=== PATIENT | male | born 1930 | race Caucasian/White ===

== ENCOUNTER 2017-04-11 08:06 | Inpatient (IN) ==
[2017-04-11 10:06] LABS: Basophils % 0.3 % (0.0-0.8); Eosinophils % 0.2 % (0.00-10.9); Hemoglobin 11.9 GM/DL (14.0-18.0); Immature Granulocytes % 0.5 %; Immature Granulocytes Absolute 0.05 #; Lymphocytes % 9.2 % (21.2-54.2); Mean Corpuscular HGB Conc 32.2 GM/DL (32-36); Mean Corpuscular Hemoglobin 30 PG (27-34); Mean Corpuscular Volume 93.7 FL (87-102); Mean Platelet Volume 11.9 FL (9.6-12.0); Monocytes # 0.4 10*3/uL (0.11-0.8); Monocytes % 4.1 % (1.7-12.7); Neutrophils # 8.9 10*3/uL (1.4-7.4); Neutrophils % 85.7 % (38.7-73.9); Platelet Count 239 T/CUMM (130-400); Red Blood Count 3.95 MC/CUMM (3.8-5.5); Red Cell Distribution Width 14.8 % (9.3-17.3); White Blood Count 10.4 T/CUMM (4-12)
[2017-04-11 10:14] LABS: PT Patient Result 10.2 SECS; Partial Thromboplastin Time 25.6 SECS (0-40)
[2017-04-11 10:34] LABS: Alanine Aminotransferase 17 U/L (16-61); Albumin 2.6 G/DL (3.4-5.0); Alkaline Phosphatase 129 U/L (45-117); Aspartate Amino Transferase 18 U/L (0-37); Blood Urea Nitrogen 25 MG/DL (7-18); Calcium 8.4 MG/DL (8.5-10.1); Glucose 71 MG/DL (74-106); Osmolality,Calculated 282.3 MOS/KG (273-304); Potassium 3.9 MMOL/L (3.5-5.1); Sodium 141 MMOL/L (136-145); Total Protein 6.7 G/DL (6.4-8.3); Troponin I Only < 0.015 NG/ML (0.00-0.045)
[2017-04-11] MEDS ORDERED: DEXTROSE 50% 25 GM/50 ML SYRINGE IV ONE ×6 (10:49→19:22)
[2017-04-11] MEDS ORDERED: HYDROmorphone 2 MG/1 ML VIAL ONE (10:49)
[2017-04-11] MEDS ORDERED: HYDROmorphone 2 MG/1 ML VIAL IV STA (10:52)
[2017-04-11] MEDS ORDERED: DEXTROSE 50% 25 GM/50 ML VIAL IV STA ×3 (10:53→15:04)
[2017-04-11 11:50] LABS: Apearance,Urine CLOUDY (Clear); Bacteria,Urine Occasional /HPF (Few); Bilirubin,Urine Negative (Negative); Blood, Urine Small mg/dL (Negative); Glucose,Urine (UA) 50 mg/dL (Negative); Ketones,Urine Negative (Negative); Mucus,Urine Occasional /LPF (Occasional); Nitrite,Urine Positive (Negative); Protein,Urine Negative; RBC,Urine 6 /HPF (0-4); Urine Color Yellow (Yellow); Urine Specific Gravity 1.012 (1.001-1.035); Urine Urobilinogen < 2.0 EU/DL (0.2-1.0); WBC,Urine 130 /HPF (0-6)
[2017-04-11] MEDS ORDERED: LEVOFLOXACIN INJ 750 MG in PREMIX 1 EACH IV STA (12:06)
[2017-04-11] MEDS ORDERED: LEVOFLOXACIN INJ 150 ML IV ONE (12:07)
[2017-04-11] MEDS ORDERED: DEXTROSE 5% 250 ML IV SCH (14:00)
[2017-04-11] MEDS ORDERED: ACETAMINOPHEN 325 MG TABLET PO PRN (14:59)
[2017-04-11] MEDS ORDERED: GLUCAGON 1 MG VIAL IM PRN (15:03)
[2017-04-11] MEDS ORDERED: ENOXAPARIN 40 MG/0.4 ML SYRINGE ONE (15:26)
[2017-04-11] MEDS ORDERED: DEXTROSE 10% 1,000 ML IV SCH (15:30)
[2017-04-11] MEDS: ENOXAPARIN 40 MG/0.4 ML SYRINGE SUBCUT SCH (15:31)
[2017-04-11] MEDS: DEXTROSE 50% 25 GM/50 ML VIAL IV PRN ×7 (16:13→23:39)
[2017-04-11] MEDS ORDERED: GLUCAGON 1 MG VIAL IM STA (18:33)
[2017-04-11] MEDS ORDERED: GLUCAGON 1 MG VIAL ONE (19:21)
[2017-04-11] MEDS: [UNRECOGNIZED DRUG - OTHER] IV SCH (20:53)
[2017-04-11] MEDS: MULTIVITAMIN IV SCH (20:53)
[2017-04-11] MEDS: TRACE ELEMENTS IV SCH (20:53)
[2017-04-11] MEDS ORDERED: CARVEDILOL 12.5 MG TABLET PO SCH (21:00)
[2017-04-11] MEDS: DEXTROSE 10% 1,000 ML IV SCH (22:25)
[2017-04-12] MEDS: DEXTROSE 50% 25 GM/50 ML VIAL IV PRN ×9 (00:37→13:54)
[2017-04-12] MEDS: FLUTICASONE 50 MCG NASAL SPRAY 16 GM BOTTLE BOTH NARES SCH (05:39)
[2017-04-12] MEDS: DEXTROSE 10% 1,000 ML IV SCH ×4 (05:56→21:20)
[2017-04-12 06:29] LABS: Basophils % 0.3 % (0.0-0.8); Eosinophils # 0.2 10*3/uL (0.0-0.87); Eosinophils % 1.4 % (0.00-10.9); Hematocrit 28.7 VOL% (42.0-52.0); Hemoglobin 9.3 GM/DL (14.0-18.0); Immature Granulocytes % 1.1 %; Immature Granulocytes Absolute 0.13 #; Lymphocytes # 1.1 10*3/uL (1.4-4.0); Lymphocytes % 9.7 % (21.2-54.2); Mean Corpuscular HGB Conc 32.4 GM/DL (32-36); Mean Corpuscular Hemoglobin 30 PG (27-34); Mean Corpuscular Volume 93.8 FL (87-102); Mean Platelet Volume 12.7 FL (9.6-12.0); Monocytes # 1.3 10*3/uL (0.11-0.8); Monocytes % 10.9 % (1.7-12.7); NRBC # 0.06 10*3/uL; Neutrophils % 76.6 % (38.7-73.9); Platelet Count 200 T/CUMM (130-400); Red Blood Count 3.06 MC/CUMM (3.8-5.5); Red Cell Distribution Width 14.7 % (9.3-17.3); White Blood Count 11.8 T/CUMM (4-12)
[2017-04-12 06:49] LABS: Albumin 1.8 G/DL (3.4-5.0); Bilirubin,Total 0.5 MG/DL (0.2-1.0); Calcium 7.5 MG/DL (8.5-10.1); Potassium 3.3 MMOL/L (3.5-5.1); Total Protein 4.8 G/DL (6.4-8.3)
[2017-04-12] MEDS ORDERED: ONDANSETRON 4 MG/2 ML VIAL IV PRN (07:29)
[2017-04-12] MEDS ORDERED: ONDANSETRON 4 MG/2 ML VIAL ONE (07:29)
[2017-04-12] MEDS ORDERED: CLOPIDOGREL 75 MG TABLET ONE (08:46)
[2017-04-12] MEDS ORDERED: ASPIRIN CHEW 81 MG TABLET PO ONE (08:46)
[2017-04-12] MEDS: ASPIRIN EC 81 MG TABLET PO SCH (08:54)
[2017-04-12] MEDS: CLOPIDOGREL 75 MG TABLET PO SCH (08:54)
[2017-04-12] MEDS: [UNRECOGNIZED DRUG - OTHER] IV SCH (11:56)
[2017-04-12] MEDS: TRACE ELEMENTS IV SCH (11:56)
[2017-04-12] MEDS: MULTIVITAMIN IV SCH (11:56)
[2017-04-12] MEDS ORDERED: LEVOFLOXACIN INJ 150 ML IV ONE (13:28)
[2017-04-12] MEDS: LEVOFLOXACIN INJ 750 MG in PREMIX 1 EACH IV SCH (13:52)
[2017-04-12] MEDS ORDERED: traZODone 50 MG TABLET PO PRN (16:11)
[2017-04-12] MEDS: CARVEDILOL 12.5 MG TABLET PO SCH ×2 (16:48→21:20)
[2017-04-12] MEDS: ATORVASTATIN 40 MG TABLET PO SCH (21:20)
[2017-04-12] MEDS: ENOXAPARIN 40 MG/0.4 ML SYRINGE SUBCUT SCH (21:20)
[2017-04-13] MEDS: DEXTROSE 10% 500 ML IV SCH ×11 (02:48→23:40)
[2017-04-13] MEDS: DEXTROSE 10% 1,000 ML IV SCH (07:02)
[2017-04-13] MEDS: ALLOPURINOL 100 MG TABLET PO SCH (08:35)
[2017-04-13] MEDS: ASPIRIN EC 81 MG TABLET PO SCH (08:35)
[2017-04-13] MEDS: CLOPIDOGREL 75 MG TABLET PO SCH (08:35)
[2017-04-13] MEDS: CARVEDILOL 12.5 MG TABLET PO SCH ×2 (08:35→20:46)
[2017-04-13] MEDS: FLUTICASONE 50 MCG NASAL SPRAY 16 GM BOTTLE BOTH NARES SCH (08:37)
[2017-04-13] MEDS ORDERED: INFLUENZA VIRUS VACCINE 0.5 ML SYRINGE IM ONE (09:00)
[2017-04-13] MEDS ORDERED: PNEUMOCOCCAL VACCINE (13 VALENT) 0.5 ML SYRINGE IM ONE (09:00)
[2017-04-13] MEDS: LEVOFLOXACIN INJ 750 MG in PREMIX 1 EACH IV SCH (11:38)
[2017-04-13] MEDS: ENOXAPARIN 40 MG/0.4 ML SYRINGE SUBCUT SCH (20:46)
[2017-04-13] MEDS: ATORVASTATIN 40 MG TABLET PO SCH (20:46)
[2017-04-14] MEDS: DEXTROSE 10% 500 ML IV SCH ×3 (03:40→16:11)
[2017-04-14 04:30] LABS: Basophils % 0.3 % (0.0-0.8); Eosinophils # 0.2 10*3/uL (0.0-0.87); Hematocrit 28.5 VOL% (42.0-52.0); Hemoglobin 9.4 GM/DL (14.0-18.0); Immature Granulocytes % 1.8 %; Lymphocytes # 1.1 10*3/uL (1.4-4.0); Lymphocytes % 10.2 % (21.2-54.2); Mean Corpuscular Hemoglobin 30 PG (27-34); Mean Corpuscular Volume 90.5 FL (87-102); Mean Platelet Volume 12.2 FL (9.6-12.0); Monocytes # 1.4 10*3/uL (0.11-0.8); Neutrophils # 8.3 10*3/uL (1.4-7.4); Neutrophils % 73.7 % (38.7-73.9); Platelet Count 199 T/CUMM (130-400); Red Blood Count 3.15 MC/CUMM (3.8-5.5); Red Cell Distribution Width 14.3 % (9.3-17.3); White Blood Count 11.2 T/CUMM (4-12)
[2017-04-14 04:58] LABS: Calcium 8.2 MG/DL (8.5-10.1); Magnesium 1.8 MG/DL (1.8-2.4); Osmolality,Calculated 273.2 MOS/KG (273-304); Potassium 4.3 MMOL/L (3.5-5.1)
[2017-04-14] MEDS: ALLOPURINOL 100 MG TABLET PO SCH (08:35)
[2017-04-14] MEDS: FLUTICASONE 50 MCG NASAL SPRAY 16 GM BOTTLE BOTH NARES SCH (08:36)
[2017-04-14] MEDS: ASPIRIN EC 81 MG TABLET PO SCH (08:36)
[2017-04-14] MEDS: CARVEDILOL 12.5 MG TABLET PO SCH ×2 (08:36→20:46)
[2017-04-14] MEDS: CLOPIDOGREL 75 MG TABLET PO SCH (08:36)
[2017-04-14] MEDS: LEVOFLOXACIN INJ 750 MG in PREMIX 1 EACH IV SCH (13:44)
[2017-04-14] MEDS: ATORVASTATIN 40 MG TABLET PO SCH (20:46)
[2017-04-14] MEDS: ENOXAPARIN 40 MG/0.4 ML SYRINGE SUBCUT SCH (20:46)
[2017-04-15 07:14] LABS: Basophils % 0.4 % (0.0-0.8); Eosinophils # 0.3 10*3/uL (0.0-0.87); Eosinophils % 2.8 % (0.00-10.9); Hematocrit 28.3 VOL% (42.0-52.0); Hemoglobin 9.3 GM/DL (14.0-18.0); Immature Granulocytes % 2.5 %; Immature Granulocytes Absolute 0.26 #; Lymphocytes # 1.2 10*3/uL (1.4-4.0); Lymphocytes % 11.4 % (21.2-54.2); Mean Corpuscular HGB Conc 32.9 GM/DL (32-36); Mean Corpuscular Hemoglobin 30 PG (27-34); Mean Platelet Volume 12.5 FL (9.6-12.0); Monocytes # 1.4 10*3/uL (0.11-0.8); Monocytes % 13.2 % (1.7-12.7); Neutrophils # 7.2 10*3/uL (1.4-7.4); Neutrophils % 69.7 % (38.7-73.9); Platelet Count 212 T/CUMM (130-400); Red Blood Count 3.11 MC/CUMM (3.8-5.5); Red Cell Distribution Width 14.5 % (9.3-17.3); White Blood Count 10.4 T/CUMM (4-12)
[2017-04-15 07:36] LABS: Burr Cells Slight; Giant Platelets Few; Hypochromasia 1+; Ovalocytes Slight; Platelet Estimate Adequate
[2017-04-15 07:44] LABS: Calcium 8.1 MG/DL (8.5-10.1); Magnesium 1.7 MG/DL (1.8-2.4); Potassium 4.1 MMOL/L (3.5-5.1)
[2017-04-15] MEDS: CARVEDILOL 12.5 MG TABLET PO SCH ×2 (08:58→22:06)
[2017-04-15] MEDS: FLUTICASONE 50 MCG NASAL SPRAY 16 GM BOTTLE BOTH NARES SCH (08:58)
[2017-04-15] MEDS: ASPIRIN EC 81 MG TABLET PO SCH (08:58)
[2017-04-15] MEDS: CLOPIDOGREL 75 MG TABLET PO SCH (08:58)
[2017-04-15] MEDS: ALLOPURINOL 100 MG TABLET PO SCH (08:58)
[2017-04-15] MEDS: DEXTROSE 10% 500 ML IV SCH ×3 (10:08→10:10)
[2017-04-15] MEDS: LEVOFLOXACIN INJ 750 MG in PREMIX 1 EACH IV SCH (11:25)
[2017-04-15] MEDS: ENOXAPARIN 40 MG/0.4 ML SYRINGE SUBCUT SCH (22:06)
[2017-04-15] MEDS: ATORVASTATIN 40 MG TABLET PO SCH (22:06)
[2017-04-15] MEDS: SODIUM CHLORIDE 0.9% 1,000 ML IV SCH (22:10)
[2017-04-16 04:55] LABS: Basophils # 0.1 10*3/uL (0.0-0.2); Basophils % 0.5 % (0.0-0.8); Eosinophils # 0.3 10*3/uL (0.0-0.87); Eosinophils % 2.5 % (0.00-10.9); Hematocrit 26.8 VOL% (42.0-52.0); Hemoglobin 8.9 GM/DL (14.0-18.0); Immature Granulocytes % 2.8 %; Immature Granulocytes Absolute 0.29 #; Lymphocytes # 1.4 10*3/uL (1.4-4.0); Lymphocytes % 13.8 % (21.2-54.2); Mean Corpuscular HGB Conc 33.2 GM/DL (32-36); Mean Corpuscular Hemoglobin 30 PG (27-34); Mean Corpuscular Volume 91.5 FL (87-102); Monocytes # 1.4 10*3/uL (0.11-0.8); Monocytes % 13.5 % (1.7-12.7); Neutrophils # 6.8 10*3/uL (1.4-7.4); Neutrophils % 66.9 % (38.7-73.9); Platelet Count 217 T/CUMM (130-400); Red Blood Count 2.93 MC/CUMM (3.8-5.5); Red Cell Distribution Width 14.6 % (9.3-17.3); White Blood Count 10.2 T/CUMM (4-12)
[2017-04-16 05:34] LABS: Bilirubin,Total 0.9 MG/DL (0.2-1.0); Calcium 8.1 MG/DL (8.5-10.1); Osmolality,Calculated 275.7 MOS/KG (273-304); Potassium 4.3 MMOL/L (3.5-5.1); Total Protein 5.2 G/DL (6.4-8.3)
[2017-04-16] MEDS: CLOPIDOGREL 75 MG TABLET PO SCH (09:19)
[2017-04-16] MEDS: CARVEDILOL 12.5 MG TABLET PO SCH (09:19)
[2017-04-16] MEDS: ASPIRIN EC 81 MG TABLET PO SCH (09:20)
[2017-04-16] MEDS: ALLOPURINOL 100 MG TABLET PO SCH (09:20)
[2017-04-16] MEDS: FLUTICASONE 50 MCG NASAL SPRAY 16 GM BOTTLE BOTH NARES SCH (09:20)
[2017-04-16] MEDS: SODIUM CHLORIDE 0.9% 1,000 ML IV SCH (09:24)
[2017-04-16 11:47] VITALS: BP 120/70
[2017-04-16] MEDS: LEVOFLOXACIN INJ 750 MG in PREMIX 1 EACH IV SCH (13:00)
[2017-04-19 10:30] LABS: Insulin (Human), IgE < 0.35 kU/L
[2017-04-19 23:16] LABS: Chlorpropamide Negative; Glimepiride Negative; Glipizide Negative; Glyburide Negative; Repaglinide Negative; Tolazamide Unable to assess ng/mL; Tolbutamide Negative
== END 2017-04-16 14:38 | disposition home or self-care (01) | DRG 641 ==
LOC: EDBD → EDUNIT# → N.ED 08:06 → N.EDINP 04-12 14:39 → SUATTDRO 04-12 15:00 → N.EDINP 04-12 15:00 → N.CC 04-12 15:42 → N.5E 04-14 21:19
PROVIDERS: ADMIT Internal Medicine Geriatric Medicine; ATTEND Internal Medicine

== ENCOUNTER 2018-01-20 08:32 | Inpatient (IN) ==
[2018-01-20] MEDS ORDERED: SODIUM CHLORIDE 0.9% 1,000 ML IV STA ×3 (08:50→13:18)
[2018-01-20] MEDS ORDERED: LEVOFLOXACIN INJ 750 MG in PREMIX 1 EACH IV STA (08:50)
[2018-01-20 10:21] LABS: Basophils # 0.1 10*3/uL (0.0-0.2); Basophils % 0.6 % (0.0-0.8); Hematocrit 25.4 VOL% (42.0-52.0); Hemoglobin 8.4 GM/DL (14.0-18.0); Immature Granulocytes % 7.2 %; Immature Granulocytes Absolute 1.36 #; Lymphocytes # 0.6 10*3/uL (1.4-4.0); Lymphocytes % 3.1 % (21.2-54.2); Mean Corpuscular HGB Conc 33.1 GM/DL (32-36); Mean Corpuscular Hemoglobin 29 PG (27-34); Mean Corpuscular Volume 87.6 FL (87-102); Mean Platelet Volume 11.3 FL (9.6-12.0); Monocytes # 0.3 10*3/uL (0.11-0.8); Monocytes % 1.6 % (1.7-12.7); Neutrophils # 16.6 10*3/uL (1.4-7.4); Neutrophils % 87.5 % (38.7-73.9); Platelet Count 300 T/CUMM (130-400); Red Cell Distribution Width 18.8 % (9.3-17.3)
[2018-01-20 10:27] LABS: INR 1.5; PT Patient Result 16.1 SECS
[2018-01-20 10:32] LABS: Ammonia 71 UMOL/L (11-32)
[2018-01-20 10:34] LABS: Partial Thromboplastin Time 45.2 SECS (0-40)
[2018-01-20 10:36] LABS: Lactic Acid 4.5 MMOL/L (0.4-2.0)
[2018-01-20 10:37] LABS: Alanine Aminotransferase 15 U/L (16-61); Albumin 0.8 G/DL (3.4-5.0); Alkaline Phosphatase 133 U/L (45-117); Aspartate Amino Transferase 32 U/L (0-37); Blood Urea Nitrogen 67 MG/DL (7-18); CKMB % 1.6 %; Calcium 6.8 MG/DL (8.5-10.1); Glucose 81 MG/DL (74-106); Osmolality,Calculated 292.7 MOS/KG (273-304); Sodium 138 MMOL/L (136-145); Total Protein 4.7 G/DL (6.4-8.3)
[2018-01-20 10:38] LABS: Amorphous Crystals,Urine Occasional /HPF (Few); Apearance,Urine CLOUDY (Clear); Bilirubin,Urine Negative (Negative); Blood, Urine Negative (Negative); Glucose,Urine (UA) Negative (Negative); Hyaline Casts,Urine 22 /LPF (0-3); Ketones,Urine 5 mg/dL (Negative); Mucus,Urine Occasional /LPF (Occasional); Nitrite,Urine Negative (Negative); Protein,Urine 100 MG/DL; RBC,Urine 34 /HPF (0-4); Urine Color Amber (Yellow); Urine Specific Gravity 1.011 (1.001-1.035); WBC,Urine 80 /HPF (0-6)
[2018-01-20 10:43] LABS: Band Neutrophils 15 % (0-10); Burr Cells Slight; Hypochromasia 1+; Lymphocytes 3 % (20-55); Platelet Estimate Adequate; Segmented Neutrophils 79 % (50-85); Total Cells Counted 100
[2018-01-20 11:04] LABS: Barbiturates Screen,Urine Negative (Negative); Benzodiazepines Screen,Urine Negative (Negative); Cannabinoid Screen,Urine Negative (Negative); Opiate Screen,Urine Negative (Negative); Phencyclidine Screen,Urine Negative (Negative)
[2018-01-20] MEDS ORDERED: MEROPENEM 1,000 MG in SYRINGE 1 EACH IV SCH (13:30)
[2018-01-20] MEDS ORDERED: PHYTONADIONE 10 MG/1 ML AMP SUBCUT STA (13:58)
[2018-01-20] MEDS ORDERED: ONDANSETRON 4 MG/2 ML VIAL IV PRN (14:33)
[2018-01-20] MEDS ORDERED: ENOXAPARIN 30 MG/0.3 ML SYRINGE SUBCUT SCH (16:00)
[2018-01-20] MEDS: DEXAMETHASONE 4 MG/1 ML VIAL IV SCH (16:10)
[2018-01-20] MEDS: SODIUM CHLORIDE 0.9% 1,000 ML IV SCH (16:16)
[2018-01-20] MEDS: PANTOPRAZOLE 40 MG TABLET PO SCH (16:40)
[2018-01-20] MEDS: PHENYLEPHRINE DRIP 40 MG/250 ML PREMIX IV PRN ×5 (16:41→23:41)
[2018-01-20] MEDS ORDERED: SODIUM CHLORIDE 0.9% 1,000 ML IV ONE (17:30)
[2018-01-20] MEDS ORDERED: NOREPINEPHRINE 4 MG/4 ML VIAL IV ONE (17:48)
[2018-01-20] MEDS: NOREPINEPHRINE 8 MG in SODIUM CHLORIDE 0.9% 242 ML IV PRN ×2 (17:50→21:32)
[2018-01-20 18:28] LABS: ABG Base Excess -10.9 MMOL/L (-2.5-2.5); ABG HCO3 15.7 MMOL/L (20-26); ABG Oxygen Saturation 98.7 % (95-100); ABG PCO2 21.9 MM HG (35-48); ABG PH 7.384 (7.35-7.45); ABG TCO2 12.2 MMOL/L (23-27)
[2018-01-20] MEDS ORDERED: ALBUMIN 25% 50 GM in PREMIX 1 EACH IV ONE (19:43)
[2018-01-20] MEDS: LACTULOSE 20 GM/30 ML UDCUP PO SCH (20:40)
[2018-01-20 22:16] LABS: Hepatitis A Ab IgM Quant 0.18 Index; Hepatitis A Ab IgM Result Negative (Negative); Hepatitis B Core IgM Quant < 0.05 Index; Hepatitis B Core IgM Result Negative (Negative); Hepatitis B Surface Ag Quant 0.13 Index; Hepatitis B Surface Ag Result Negative (Negative); Hepatitis C Virus Ab Quant 0.11 Index; Hepatitis C Virus Ab Result Negative (Negative)
[2018-01-20] MEDS: ALBUMIN 25% 12.5 GM in PREMIX 1 EACH IV SCH (22:43)
[2018-01-21] MEDS ORDERED: EPINEPHrine 1 MG/ML VIAL ONE (00:43)
[2018-01-21] MEDS: SODIUM CHLORIDE 0.9% 1,000 ML IV SCH (00:52)
[2018-01-21] MEDS ORDERED: NOREPINEPHRINE 16 MG in SODIUM CHLORIDE 0.9% 242 ML IV PRN (01:00)
[2018-01-21] MEDS: MEROPENEM 1,000 MG in SYRINGE 1 EACH IV SCH ×2 (01:34→06:20)
[2018-01-21] MEDS: PHENYLEPHRINE INJ 80 MG in SODIUM CHLORIDE 0.9% 242 ML IV PRN ×2 (01:39→05:28)
[2018-01-21] MEDS ORDERED: DEXTROSE 50% 25 GM/50 ML VIAL IV ONE (02:31)
[2018-01-21] MEDS ORDERED: DEXTROSE 50% 25 GM/50 ML VIAL IV PRN (02:31)
[2018-01-21 02:58] LABS: ABG Base Excess -15.6 MMOL/L (-2.5-2.5); ABG HCO3 12.3 MMOL/L (20-26); ABG Oxygen Saturation 92.4 % (95-100); ABG PCO2 22.6 MM HG (35-48); ABG PH 7.265 (7.35-7.45); ABG PO2 89.3 MM HG (80-95); ABG TCO2 9.8 MMOL/L (23-27)
[2018-01-21 03:17] LABS: INR 1.8
[2018-01-21 03:20] LABS: Basophils # 0.1 10*3/uL (0.0-0.2); Basophils % 0.8 % (0.0-0.8); Hematocrit 22.5 VOL% (42.0-52.0); Immature Granulocytes % 11.4 %; Immature Granulocytes Absolute 1.63 #; Lymphocytes # 0.4 10*3/uL (1.4-4.0); Lymphocytes % 2.4 % (21.2-54.2); Mean Corpuscular HGB Conc 31.1 GM/DL (32-36); Mean Corpuscular Hemoglobin 29 PG (27-34); Mean Corpuscular Volume 92.6 FL (87-102); Mean Platelet Volume 11.7 FL (9.6-12.0); Monocytes # 0.2 10*3/uL (0.11-0.8); Monocytes % 1.3 % (1.7-12.7); Neutrophils % 84.1 % (38.7-73.9); Platelet Count 247 T/CUMM (130-400); Red Blood Count 2.43 MC/CUMM (3.8-5.5); Red Cell Distribution Width 19.1 % (9.3-17.3); White Blood Count 14.3 T/CUMM (4-12)
[2018-01-21] MEDS: DEXAMETHASONE 4 MG/1 ML VIAL IV SCH (03:20)
[2018-01-21 03:23] LABS: Bilirubin,Direct 0.52 MG/DL (0.0-0.20); Bilirubin,Indirect 0.4 MG/DL (0.0-1.0); Bilirubin,Total 0.9 MG/DL (0.2-1.0); Total Protein 4.3 G/DL (6.4-8.3)
[2018-01-21] MEDS: ALBUMIN 25% 12.5 GM in PREMIX 1 EACH IV SCH (03:23)
[2018-01-21 03:24] LABS: Osmolality,Calculated 301.5 MOS/KG (273-304); Potassium 4.7 MMOL/L (3.5-5.1)
[2018-01-21 03:29] LABS: Calcium 5.7 MG/DL (8.5-10.1)
[2018-01-21] MEDS ORDERED: SODIUM BICARBONATE 50 MEQ/50 ML SYRINGE IV ONE ×3 (03:32→08:32)
[2018-01-21] MEDS ORDERED: CALCIUM GLUCONATE 2,000 MG in SODIUM CHLORIDE 0.9% 100 ML IV ONE (03:32)
[2018-01-21] MEDS ORDERED: CALCIUM GLUCONATE 1,000 MG/10 ML VIAL IV ONE (03:36)
[2018-01-21 04:40] LABS: Band Neutrophils 31 % (0-10); Lymphocytes 2 % (20-55); Segmented Neutrophils 53 % (50-85); Total Cells Counted 100
[2018-01-21 04:41] LABS: Anisocytosis 1+; Hypochromasia 1+; Platelet Estimate Normal
[2018-01-21] MEDS ORDERED: SODIUM CHLORIDE 0.9% 1,000 ML IV PRN (07:47)
[2018-01-21] MEDS ORDERED: ZINC OXIDE PASTE 113 GM TUBE TOP SCH (09:00)
[2018-01-21] MEDS ORDERED: ASPIRIN EC 81 MG TABLET PO SCH (09:00)
[2018-01-21] MEDS ORDERED: SODIUM BICARB INJ 100 MEQ in DEXTROSE 5% 1,000 ML IV SCH (09:00)
[2018-01-21] MEDS ORDERED: CLOPIDOGREL 75 MG TABLET PO SCH (09:00)
[2018-01-21] MEDS ORDERED: ALLOPURINOL 100 MG TABLET PO SCH (09:00)
[2018-01-21] MEDS ORDERED: PHENYLEPHRINE DRIP 40 MG/250 ML PREMIX IV ONE (09:33)
[2018-01-21] MEDS: LACTULOSE 20 GM/30 ML UDCUP PO SCH (10:12)
[2018-01-21] MEDS: PANTOPRAZOLE 40 MG TABLET PO SCH (10:13)
[2018-01-21 14:02] VITALS: BP 33/15
[2018-01-21] MEDS ORDERED: ENOXAPARIN 30 MG/0.3 ML SYRINGE SUBCUT SCH (15:00)
[2018-01-22] MEDS ORDERED: LEVOFLOXACIN INJ 500 MG in PREMIX 1 EACH IV SCH (09:00)
== END 2018-01-21 12:00 | disposition expired | DRG 871 ==
LOC: N.ED 08:32 → N.EDINP 13:17 → N.CC 14:25
PROVIDERS: ADMIT Internal Medicine; ATTEND Internal Medicine